=== PATIENT | male | born 1950 | race Caucasian/White ===

== ENCOUNTER 2016-12-27 12:06 | Inpatient (IN) | payer BC ==
[~2016-12-27] VITALS: Ht 165.1 cm; Wt 102.0 kg
[2016-12-27] VITALS (15 sets, daily range): BP systolic 135–154; BP diastolic 62–79; PULSE 64–76; RESP 16–20; TEMP 97.9–98.7; O2SAT 96–99
[~2016-12-27 12:06] MED LIST: FERR325T PO; HYDR10SO PO; IOHEXOL 350 MG/ML 100 ML BTL (for Cath Lab) OTHER ONE; LISI-357 PO; NEXI20CA PO; RIVA10 PO; WALKER STANDARD; ZANTTAB PO
[2016-12-27] MEDS ORDERED: ASPI325T PO (12:19)
[2016-12-27] MEDS ORDERED: PRIL20CA9 PO (12:19)
[2016-12-27] MEDS ORDERED: LISI10TA3 PO (12:19)
[2016-12-27] MEDS ORDERED: LIDOCAINE VISCOUS 2% SOLN 15 ML UDC PO ONE (12:30)
[2016-12-27] MEDS ORDERED: ASPIRIN 325 MG TAB PO ONE (12:30)
[2016-12-27] MEDS ORDERED: FAMOTIDINE 20 MG/2 ML VIAL IV PUSH ONE (12:30)
[2016-12-27] MEDS ORDERED: SODIUM CHLORIDE 0.9% FLUSH 10 ML FLUSH IVF PRN (12:30)
[2016-12-27] MEDS ORDERED: ALUMINUM/MAGNESIUM/SIMETH 30 ML CUP PO ONE (12:30)
[2016-12-27] MEDS ORDERED: PANTOPRAZOLE SODIUM 40 MG VIAL IVP ONE (12:30)
[2016-12-27 12:44] LABS: AUTOMATED NEUTROPHIL # 8.2 TH/MM3 (1.8-7.7); BASOPHIL % 0.3 % (0.0-2.0); EOSINOPHIL % 0.5 % (0.0-4.0); HEMATOCRIT 42.8 % (39.0-51.0); HEMO FLAGS DIFF FINAL; LYMPH % 8.2 % (9.0-44.0); LYMPHOCYTE # 0.8 TH/MM3 (1.0-4.8); MEAN CELL VOLUME 86.5 FL (80.0-100.0); MEAN CORPUSCULAR HEMOGLOBIN 29.5 PG (27.0-34.0); MEAN CORPUSCULAR HGB CONC 34.1 % (32.0-36.0); MONO % 6.8 % (0.0-8.0); NEUT % 84.2 % (16.0-70.0); PLATELET COUNT 353 TH/MM3 (150-450); RED BLOOD COUNT 4.95 MIL/MM3 (4.50-5.90); RED CELL DISTRIBUTION WIDTH 12.7 % (11.6-17.2); WHITE BLOOD COUNT 9.7 TH/MM3 (4.0-11.0)
[2016-12-27 12:47] LABS: CHLORIDE 103 MEQ/L (98-107); POTASSIUM 3.9 MEQ/L (3.5-5.1); SODIUM (NA) 140 MEQ/L (136-145)
[2016-12-27 12:51] LABS: ANION GAP 10 MEQ/L (5-15); BLOOD UREA NITROGEN 18 MG/DL (7-18); MAGNESIUM 2.3 MG/DL (1.5-2.5)
[2016-12-27 12:53] LABS: PROTHROMBIN TIME - PATIENT 10.6 SEC (9.8-11.6)
[2016-12-27 12:54] LABS: ALT (GPT) 29 U/L (12-78); AST (GOT) 36 U/L (15-37); GLOMERULAR FILTRATION RATE 75 ML/MIN (>89)
[2016-12-27 12:55] LABS: TOTAL BILIRUBIN ADULT 0.4 MG/DL (0.2-1.0)
--- NOTE | 2016-12-27 12:55 | RADHPO ---
EXAM DATE/TIME: 12/27/2016 12:41 [place] COMPARISON: CHEST PA & LAT, October 31, 2014, 10:20. INDICATIONS : Chest pain today MEDICAL HISTORY : None. SURGICAL HISTORY : None. ENCOUNTER: Initial ACUITY: 1 day PAIN SCORE: 3/10 LOCATION: Bilateral chest FINDINGS: Single portable view of the chest demonstrates overall hypoinflation. The cardiac silhouette appears mildly increased in size, likely secondary to hypoinflation and portable technique. The lungs are rebecca ssly clear.. Osseous structures are intact. CONCLUSION: Hypoinflation. Otherwise negative exam. Megha Leo MD on December 27, 2016 at 12:52 Board Certified Radiologist. This report was verified electronically.
[2016-12-27 12:57] LABS: ALKALINE PHOSPHATASE 58 U/L (45-117); CREATINE KINASE 331 U/L (39-308)
[2016-12-27 13:09] LABS: CKMB 30.1 NG/ML (0.5-3.6)
--- NOTE | 2016-12-27 13:27 | PD ---
HPI Chief Complaint: Chest Pain Time Seen by Provider: 12:24 Travel History International Travel<30 days: No Contact w/Intl Traveler<30days: No Traveled to known affect area: No History of Present Illness HPI Patient presents for midsternal chest pain that awoke him from sleep at 3 AM. History of reflux and hypertension. Took a Prilosec without relief. Denies diaphoresis. Mild shortness of breath. No radiation to neck or arms. He does complain of bilateral triceps pain. Denies diabetes. Denies tobacco use. Denies any personal cardiac history. Reports that his mother had cardiac problems in her early 60s. PFSH Past Medical History Hx Anticoagulant Therapy: Yes (325mg every couple days) Cancer: Yes (SKIN) Cardiovascular Problems: Yes (htn) Diabetes: No Diminished Hearing: No Endocrine: No Gastrointestinal Disorders: Yes (GERD) GERD: Yes (mahan's) Genitourinary: No Hepatitis: No Hiatal Hernia: No Hypertension: Yes Immune Disorder: No Musculoskeletal: Yes (ARTHRITIS) Neurologic: Yes (LEFT LEG NUMBNESS/ TINGLING FEET) Psychiatric: No Respiratory: Yes (SLEEP APNEA RESOLVED WITH SX) Thyroid Disease: No Tetanus Vaccination: Unknown Influenza Vaccination: No Past Surgical History Abdominal Surgery: Yes (LAP SONNY) AICD: No Joint Replacement: No Oral Surgery: Yes (T & A, UPPP) Pacemaker: No Other Surgery: Yes (left hip replacement) Social History Alcohol Use: Yes (occ) Tobacco Use: No Substance Use: No Allergies-Medications (Allergen,Severity, Reaction): Coded Allergies: No Known Allergies (Unverified , 12/27/16) Reported Meds & Prescriptions Reported Meds & Active Scripts Active Reported Prilosec (Omeprazole) 20 Mg Cap 20 Mg PO DAILY Aspirin 325 Mg Tab 325 Mg PO EVERY OTHER DAY Lisinopril 10 Mg Tab 10 Mg PO DAILY Review of Systems General / Constitutional: No: Fever Eyes: No: Visual changes HENT: No: Headaches Cardiovascular: Positive: Chest Pain or Discomfort Respiratory: No: Shortness of Breath Gastrointestinal: No: Abdominal Pain Genitourinary: No: Dysuria Musculoskeletal: No: Pain Skin: No Rash Neurologic: No: Weakness Psychiatric: No: Depression Endocrine: No: Polydipsia Hematologic/Lymphatic: No: Easy Bruising Physical Exam Narrative GENERAL: Well-nourished, well-developed patient. SKIN: Focused skin assessment warm/dry. HEAD: Normocephalic. EYES: No scleral icterus. No injection or drainage. NECK: Supple, trachea midline. No JVD or lymphadenopathy. CARDIOVASCULAR: Regular rate and rhythm without murmurs, gallops, or rubs. RESPIRATORY: Breath sounds equal bilaterally. No accessory muscle use. GASTROINTESTINAL: Abdomen soft, non-tender, nondistended. MUSCULOSKELETAL: No cyanosis, or edema. BACK: Nontender without obvious deformity. No CVA tenderness. Data Data Last Documented VS Vital Signs Date Time Temp Pulse Resp B/P Pulse Ox O2 Delivery O2 Flow Rate FiO2 12/27/16 13:44 18 12/27/16 13:39 70 138/70 98 Room Air 12/27/16 12:13 97.9 Orders Electrocardiogram (12/27/16 12:24) Ckmb (Isoenzyme) Profile (12/27/16 12:24) Complete Blood Count With Diff (12/27/16 12:24) Comprehensive Metabolic Panel (12/27/16 12:24) Magnesium (Mg) (12/27/16 12:24) Prothrombin Time / Inr (Pt) (12/27/16 12:24) Act Partial Throm Time (Ptt) (12/27/16 12:24) Troponin I (12/27/16 12:24) Chest, Single Ap (12/27/16 12:24) Ecg Monitoring (12/27/16 12:24) Bilateral Bp Monitoring (12/27/16 12:24) Iv Access Insert/Monitor (12/27/16 12:24) Oximetry (12/27/16 12:24) Oxygen Administration (12/27/16 12:24) Aspirin (Aspirin) (12/27/16 12:30) Sodium Chloride 0.9% Flush (Ns Flush) (12/27/16 12:30) Pantoprazole Inj (Protonix Inj) (12/27/16 12:30) Famotidine Inj (Pepcid Inj) (12/27/16 12:30) Al-Mag Hy-Si 40-40-4 Mg/Ml Liq (Mag-Al P (12/27/16 12:30) Lidocaine 2% Viscous (Xylocaine 2% Visco (12/27/16 12:30) CKMB (12/27/16 12:15) CKMB% (12/27/16 12:15) Morphine Inj (Morphine Inj) (12/27/16 13:30) Nitroglycerin 2% Oint (Nitroglycerin 2% (12/27/16 13:30) Admit Order (Ed Use Only) (12/27/16 ) ^ Saline Lock (12/27/16 13:46) Resp Oxygen Nino C Titrat 1-4 L (12/27/16 ) Notify Dr: Other (12/27/16 13:46) Sodium Chlor 0.9% 1000 Ml Inj (Ns 1000 M (12/27/16 14:00) Labs Laboratory Tests Test 12/27/16 12:15 White Blood Count 9.7 TH/MM3 Red Blood Count 4.95 MIL/MM3 Hemoglobin 14.6 GM/DL Hematocrit 42.8 % Mean Corpuscular Volume 86.5 FL Mean Corpuscular Hemoglobin 29.5 PG Mean Corpuscular Hemoglobin 34.1 % Concent Red Cell Distribution Width 12.7 % Platelet Count 353 TH/MM3 Mean Platelet Volume 7.3 FL Neutrophils (%) (Auto) 84.2 % Lymphocytes (%) (Auto) 8.2 % Monocytes (%) (Auto) 6.8 % Eosinophils (%) (Auto) 0.5 % Basophils (%) (Auto) 0.3 % Neutrophils # (Auto) 8.2 TH/MM3 Lymphocytes # (Auto) 0.8 TH/MM3 Monocytes # (Auto) 0.7 TH/MM3 Eosinophils # (Auto) 0.0 TH/MM3 Basophils # (Auto) 0.0 TH/MM3 CBC Comment DIFF FINAL Differential Comment Prothrombin Time 10.6 SEC Prothromb Time International 1.0 RATIO Ratio Activated Partial 33.0 SEC Thromboplast Time Sodium Level 140 MEQ/L Potassium Level 3.9 MEQ/L Chloride Level 103 MEQ/L Carbon Dioxide Level 27.0 MEQ/L Anion Gap 10 MEQ/L Blood Urea Nitrogen 18 MG/DL Creatinine 1.00 MG/DL Estimat Glomerular Filtration 75 ML/MIN Rate Random Glucose 152 MG/DL Calcium Level 9.0 MG/DL Magnesium Level 2.3 MG/DL Total Bilirubin 0.4 MG/DL Aspartate Amino Transf 36 U/L (AST/SGOT) Alanine Aminotransferase 29 U/L (ALT/SGPT) Alkaline Phosphatase 58 U/L Total Creatine Kinase 331 U/L Creatine Kinase MB 30.1 NG/ML Creatine Kinase MB % 9.1 % Troponin I 1.48 NG/ML Total Protein 7.7 GM/DL Albumin 4.3 GM/DL MDM Medical Decision Making Medical Screen Exam Complete: Yes Emergency Medical Condition: Yes Differential Diagnosis ACS, reflux, gastritis Narrative Course Assessment and plan discussed with patient at bedside. No improvement with GI cocktail. EKG sinus rhythm rate of 73. Cardiac enzymes are elevated slightly. Pain was persistent until morphine and nitroglycerin were started. Last 72 hours Impressions Chest X-Ray 12/27/16 1224 Signed Impressions: Service Date/Time: Tuesday, December 27, 2016 12:41 - CONCLUSION: Hypoinflation. Otherwise negative exam. Megha Leo MD Physician Communication Physician Communication Spoke with Dr. Pearl who requested a STEMI alert be called Diagnosis Primary Impression: NSTEMI (non-ST elevated myocardial infarction) Admitting Information Admitting Physician Requests: Admit Andrez Whatley MD Dec 27, 2016 13:27
[2016-12-27] MEDS ORDERED: NITROGLYCERIN 2% OINT 1 GM PACKET TOP ONE (13:30)
[2016-12-27] MEDS ORDERED: MORPHINE SULFATE 4 MG/ML INJ IV PUSH ONE (13:30)
[2016-12-27] MEDS: SODIUM CHLOR 0.9% 1000 ML INJ 1,000 ML IV SCH ×2 (13:53→22:00)
[2016-12-27] MEDS ORDERED: HEPARIN-NS/PF INJ 500 ML ONE (14:19)
[2016-12-27] MEDS ORDERED: HEPARIN SODIUM - IV 10,000 UNITS/10 ML VIAL ONE (14:47)
[2016-12-27] MEDS ORDERED: PRASUGREL 10 MG TAB ONE (15:01)
[2016-12-27] MEDS ORDERED: TIROFIBAN INFUSION INJ 250 ML IV ONE (15:01)
[2016-12-27] MEDS: TIROFIBAN INFUSION INJ 250 ML IV SCH ×2 (15:04→22:11)
[2016-12-27] MEDS ORDERED: SODIUM CHLORIDE 0.9% FLUSH 10 ML FLUSH PRN (15:15)
[2016-12-27] MEDS: PRASUGREL 10 MG TAB PO ONE ×2 (15:15→15:20)
[2016-12-27] MEDS ORDERED: MISC INFORMATION XX ONE (15:15)
[2016-12-27] MEDS ORDERED: NITROGLYCERIN/DEXTROSE 5% 250 ML for chest pain IV SCH (16:45)
[2016-12-27] MEDS ORDERED: HEPARIN 25,000 UNITS-D5W 250 ML - PREMIX IV SCH (17:00)
[2016-12-27] MEDS ORDERED: HEPARIN SODIUM - IV 10,000 UNITS/10 ML VIAL IV PRN ×2 (17:00)
--- NOTE | 2016-12-27 18:47 | MB ---
cc: JUANITA LAY MD DATE OF CONSULTATION: 12/27/16 HISTORY OF PRESENT ILLNESS Yair is a very pleasant 66 year old gentleman with no significant past medical history who developed chest pain at 3:00 a.m. unrelieved in the emergency room treated by Dr. Andrez Whatley. Otherwise, denies any fevers, chills, cough, or GI bleeding, paroxysmal nocturnal dyspnea, orthopnea, syncope or dizziness. PAST MEDICAL HISTORY Per History of Present Illness 1. History of reflux esophagitis 2. Hypertension, 3. Arthritis, 4. Lower extremity neuropathy 5. Sleep apnea 6. Laparoscopic cholecystectomy 7. Left hip replacement SOCIAL HISTORY Drinks alcohol occasionally. Denies tobacco use. ALLERGIES None. MEDICATIONS Prior to admission 1. Prilosec 2. Aspirin 325. 3. Lisinopril 10. Given in the emergency room, 1. Heparin 2. Aspirin 325, 3. One-inch Nitro paste. 4. Pantoprazole 40 5. 20 IV. PHYSICAL EXAMINATION VITAL SIGNS: Blood pressure 147/79, pulse 70, respiratory rate 18, temperature unrecorded. GENERAL: He is alert and oriented x3 in no acute distress. NECK: Supple. No JVD or bruit. CARDIOVASCULAR: S1, S2, no murmurs, rubs or gallops. LUNGS: bilaterally ABDOMEN: Soft, nontender, nondistended with positive bowel sounds, EXTREMITIES: No lower extremity edema. LABORATORY DATA White count 9.7, hemoglobin 14.6, hematocrit 42.8, platelet count 353, troponin is 1.48. CK 331, CK-MB percent 9.1. Sodium 140, potassium 2.9, chloride 103, bicarb 26.0, BUN 18, creatinine 1.0, glucose 152, INR is 1.0. IMAGING STUDIES Chest x-ray - Hypoinflation otherwise negative exam. CARDIOLOGY STUDIES EKG shows normal sinus rhythm at 73 beats per minute. Left anterior fascicular block. DIAGNOSES 1. Non STEMI 2. Hypertension 3. Left anterior fascicular block. 4. Hyperglycemia. RECOMMENDATION The patient had chest pain unrelieved with medical management in the emergency room, therefore, recommend emergency catheterization, primary PCI if indicated. Further recommendations depending on the details of the coronary anatomy and left ventriculogram. MD JOSE M Schwab/ /2:38 PM /6:36 PM
[2016-12-27] MEDS ORDERED: CALCIUM CARBONATE 500 MG CHEWABLE TAB CHEW ONE ×2 (20:15→21:15)
[2016-12-27] MEDS: CARVEDILOL 3.125 MG TAB PO SCH (20:30)
[2016-12-27] MEDS: traMADol HCL 50 MG TAB PO PRN (20:30)
[2016-12-27] MEDS: diphenhydrAMINE HCL 25 MG CAP PO PRN (20:31)
[2016-12-27] MEDS: SODIUM CHLORIDE 0.9% FLUSH 10 ML FLUSH SCH (20:31)
[2016-12-27] MEDS: ATORVASTATIN 10 MG TAB PO SCH (20:31)
[2016-12-27] MEDS ORDERED: FAMOTIDINE 20 MG TAB PO SCH (21:00)
[2016-12-28] VITALS (24 sets, daily range): BP systolic 139–158; BP diastolic 65–81; PULSE 60–83; RESP 16–20; TEMP 97.3–98.6; O2SAT 96–98
[2016-12-28 02:51] LABS: APTT (PATIENT) 44.7 SEC (24.3-30.1)
[2016-12-28] MEDS: traMADol HCL 50 MG TAB PO PRN ×2 (03:33→14:22)
[2016-12-28] MEDS: SODIUM CHLOR 0.9% 1000 ML INJ 1,000 ML IV SCH ×3 (05:49→21:13)
[2016-12-28 06:05] LABS: BASOPHIL % 0.2 % (0.0-2.0); EOSINOPHIL % 0.2 % (0.0-4.0); HEMATOCRIT 34.8 % (39.0-51.0); HEMO FLAGS DIFF FINAL; LYMPH % 11.3 % (9.0-44.0); LYMPHOCYTE # 1.3 TH/MM3 (1.0-4.8); MEAN CELL VOLUME 85.4 FL (80.0-100.0); MEAN CORPUSCULAR HEMOGLOBIN 29.8 PG (27.0-34.0); MEAN CORPUSCULAR HGB CONC 34.8 % (32.0-36.0); MONO % 7.7 % (0.0-8.0); NEUT % 80.6 % (16.0-70.0); PLATELET COUNT 285 TH/MM3 (150-450); RED BLOOD COUNT 4.07 MIL/MM3 (4.50-5.90); RED CELL DISTRIBUTION WIDTH 13.4 % (11.6-17.2); WHITE BLOOD COUNT 11.2 TH/MM3 (4.0-11.0)
[2016-12-28 06:16] LABS: ANION GAP 8 MEQ/L (5-15); BICARBONATE 24.8 MEQ/L (21.0-32.0); BLOOD UREA NITROGEN 15 MG/DL (7-18); CHLORIDE 105 MEQ/L (98-107); CREATINE KINASE 795 U/L (39-308); GLOMERULAR FILTRATION RATE 86 ML/MIN (>89); LDL CHOLESTEROL 85 MG/DL (0-99); POTASSIUM 3.8 MEQ/L (3.5-5.1); SODIUM (NA) 138 MEQ/L (136-145)
[2016-12-28] MEDS: SODIUM CHLORIDE 0.9% FLUSH 10 ML FLUSH SCH ×2 (09:00→20:18)
[2016-12-28] MEDS: ASPIRIN 81 MG CHEW TAB PO SCH (09:14)
[2016-12-28] MEDS: RAMIPRIL 2.5 MG CAP PO SCH (09:14)
[2016-12-28] MEDS: PRASUGREL 10 MG TAB PO SCH (09:14)
[2016-12-28] MEDS: CARVEDILOL 3.125 MG TAB PO SCH ×2 (09:15→20:18)
--- NOTE | 2016-12-28 09:19 | HHI.PR ---
Subjective Remarks Follow-up non-ST elevation CT 12/28/16-patient seen and examined, he underwent emergent left heart catheterization with stent placed yesterday 12/27/16. Reports some ongoing chest pain however improved this morning Objective Vitals Vital Signs Date Time Temp Pulse Resp B/P Pulse Ox O2 Delivery O2 Flow Rate FiO2 12/28/16 07:00 63 12/28/16 06:02 60 12/28/16 05:53 63 12/28/16 04:02 69 12/28/16 03:53 98.6 66 16 154/66 96 12/28/16 03:53 66 12/28/16 02:49 69 12/28/16 01:00 65 12/28/16 00:00 70 12/27/16 23:00 69 12/27/16 23:00 98.5 75 18 141/65 97 12/27/16 22:30 21 12/27/16 22:00 65 12/27/16 21:00 68 12/27/16 20:00 76 12/27/16 19:00 98.7 72 18 135/62 96 12/27/16 19:00 96 Room Air 12/27/16 19:00 72 12/27/16 18:00 74 12/27/16 17:00 64 12/27/16 16:00 64 12/27/16 15:30 98.6 65 20 154/70 96 12/27/16 15:30 96 Room Air 12/27/16 15:00 67 12/27/16 13:44 18 12/27/16 13:39 70 18 138/70 98 Room Air 12/27/16 13:13 68 16 136/72 98 Room Air 12/27/16 12:40 74 16 154/79 98 Room Air 147/79 12/27/16 12:38 98 Room Air 12/27/16 12:38 98 Room Air 12/27/16 12:20 74 16 99 Room Air 12/27/16 12:13 97.9 74 16 154/79 99 I/O 12/27/16 12/27/16 12/27/16 12/28/16 12/28/16 12/28/16 07:00 15:00 23:00 07:00 15:00 23:00 Intake Total 1132 ml Output Total 300 ml Balance 832 ml Intake Oral 480 ml IV Total 652 ml Output Urine Total 300 ml # Voids 1 # Bowel Movements 0 Result Diagram: 12/28/16 0530 12/28/16 0530 Imaging Last Impressions Chest X-Ray 12/27/16 1224 Signed Impressions: Service Date/Time: Tuesday, December 27, 2016 12:41 - CONCLUSION: Hypoinflation. Otherwise negative exam. Megha Loe MD Objective Remarks GENERAL: NAD SKIN: Warm and dry. HEAD: Normocephalic. EYES: No scleral icterus. No injection or drainage. NECK: Supple, trachea midline. No JVD or lymphadenopathy. CARDIOVASCULAR: Regular rate and rhythm without murmurs, gallops, or rubs. RESPIRATORY: Breath sounds equal bilaterally. No accessory muscle use. GASTROINTESTINAL: Abdomen soft, non-tender, nondistended. MUSCULOSKELETAL: No cyanosis, or edema. BACK: Nontender without obvious deformity. No CVA tenderness. 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 Currently on heparin drip/nitro drip/Effient/Coreg/Lipitor/aspirin Hypertension: Continue Coreg Hyperlipidemia: On Lipitor IFG: Check HgA1C and treat accordingly DVT prophylaxis: Heparin Chance Clayton MD Dec 28, 2016 09:19
[2016-12-28 09:32] LABS: APTT (PATIENT) 38.3 SEC (24.3-30.1)
[2016-12-28] MEDS ORDERED: IOHEXOL 350 MG/ML 100 ML BTL (for Cath Lab) OTHER ONE (09:58)
[2016-12-28] MEDS ORDERED: HEPARIN SODIUM - IV 10,000 UNITS/10 ML VIAL ONE (10:05)
[2016-12-28] MEDS ORDERED: HEPARIN-NS/PF INJ 500 ML ONE (10:05)
--- NOTE | 2016-12-28 10:16 | EKG ---
Date Performed: 12/27/2016 Time Performed: 12:07:50 PTAGE: 66 years EKG: Sinus rhythm Possible left anterior fascicular block Borderline ECG Compared to prior tracing no significant liu ge PREVIOUS TRACING : 10/31/2014 09.59 DOCTOR: Bakari Crandall Interpretating Date/Time 12/28/2016 10:14:30
--- NOTE | 2016-12-28 10:20 | EKG ---
Date Performed: 12/28/2016 Time Performed: 06:35:38 PTAGE: 66 years EKG: Sinus rhythm Leftward axis Poor R wave progression - probable normal variant Low QRS voltages in precordial leads Compared to prior tracing no significant change Borderline ECG PREVIOUS TRACING : 12/27/2016 12.07 DOCTOR: Bakari Crandall Interpretating Date/Time 12/28/2016 10:20:29
[2016-12-28] MEDS ORDERED: TIROFIBAN INFUSION INJ 250 ML IV ONE (10:41)
[2016-12-28] MEDS: TIROFIBAN INFUSION INJ 250 ML IV SCH ×2 (10:48→20:37)
[2016-12-28] MEDS ORDERED: MISC INFORMATION XX ONE (11:00)
[2016-12-28] MEDS ORDERED: SODIUM CHLORIDE 0.9% FLUSH 10 ML FLUSH PRN (11:00)
[2016-12-28] MEDS ORDERED: ALUMINUM/MAGNESIUM/SIMETH 30 ML CUP PO PRN (11:30)
[2016-12-28] MEDS: PANTOPRAZOLE SOD 40 MG DELAYED RELEASE TAB PO SCH (13:16)
[2016-12-28 13:47] LABS: HEMOGLOBIN A1a 1.1 %; HEMOGLOBIN Ao 85.5 %; HEMOGLOBIN F 1.2 %; HEMOGLOBIN LA1C 1.9 %; HEMOGLOBIN P3 3.5 %
[2016-12-28] MEDS ORDERED: HEPARIN 25,000 UNITS-D5W 250 ML - PREMIX IV SCH (14:00)
[2016-12-28 18:36] LABS: APTT (PATIENT) 52.1 SEC (24.3-30.1)
[2016-12-28] MEDS: ATORVASTATIN 10 MG TAB PO SCH (20:18)
[2016-12-28] MEDS: diphenhydrAMINE HCL 25 MG CAP PO PRN (20:20)
[2016-12-28] MEDS ORDERED: SODIUM CHLORIDE 0.9% FLUSH 10 ML FLUSH SCH (21:00)
[2016-12-29] VITALS (25 sets, daily range): BP systolic 119–150; BP diastolic 67–82; PULSE 64–80; RESP 16–20; TEMP 97.6–98.4; O2SAT 95–98
[2016-12-29] MEDS: traMADol HCL 50 MG TAB PO PRN (04:57)
[2016-12-29] MEDS ORDERED: ACETAMINOPHEN/HYDROcodone 325 MG/5 MG TAB PO ONE (05:30)
[2016-12-29] MEDS ORDERED: PANTOPRAZOLE SOD 20 MG DELAYED RELEASE TAB PO ONE (05:30)
[2016-12-29] MEDS: SODIUM CHLOR 0.9% 1000 ML INJ 1,000 ML IV SCH ×2 (06:00→14:00)
[2016-12-29 06:17] LABS: BASOPHIL % 0.3 % (0.0-2.0); EOSINOPHIL % 0.4 % (0.0-4.0); HEMATOCRIT 36.5 % (39.0-51.0); HEMO FLAGS DIFF FINAL; LYMPH % 14.8 % (9.0-44.0); LYMPHOCYTE # 1.6 TH/MM3 (1.0-4.8); MEAN CELL VOLUME 85.5 FL (80.0-100.0); MEAN CORPUSCULAR HEMOGLOBIN 30.3 PG (27.0-34.0); MEAN CORPUSCULAR HGB CONC 35.5 % (32.0-36.0); MONO % 9.8 % (0.0-8.0); NEUT % 74.7 % (16.0-70.0); PLATELET COUNT 261 TH/MM3 (150-450); RED BLOOD COUNT 4.27 MIL/MM3 (4.50-5.90); RED CELL DISTRIBUTION WIDTH 13.3 % (11.6-17.2); WHITE BLOOD COUNT 10.8 TH/MM3 (4.0-11.0)
[2016-12-29 06:24] LABS: APTT (PATIENT) 44.8 SEC (24.3-30.1)
[2016-12-29 06:38] LABS: BICARBONATE 24.7 MEQ/L (21.0-32.0); POTASSIUM 3.7 MEQ/L (3.5-5.1)
[2016-12-29] MEDS ORDERED: ALPRAZolam 1 MG TAB PO ONE (08:15)
[2016-12-29] MEDS ORDERED: PRASUGREL 10 MG TAB PO SCH (09:00)
[2016-12-29] MEDS ORDERED: ASPIRIN 81 MG CHEW TAB PO SCH (09:00)
[2016-12-29] MEDS: SODIUM CHLORIDE 0.9% FLUSH 10 ML FLUSH SCH ×2 (09:00→21:00)
[2016-12-29] MEDS: PANTOPRAZOLE SOD 40 MG DELAYED RELEASE TAB PO SCH (09:13)
[2016-12-29] MEDS: CARVEDILOL 3.125 MG TAB PO SCH ×2 (09:13→21:00)
[2016-12-29] MEDS: RAMIPRIL 2.5 MG CAP PO SCH (09:13)
[2016-12-29] MEDS: PRASUGREL 10 MG TAB PO SCH (09:13)
[2016-12-29] MEDS: ASPIRIN 81 MG CHEW TAB PO SCH (09:14)
--- NOTE | 2016-12-29 09:57 | HHI.PR ---
Subjective Remarks Follow-up non-ST elevation [place] 12/28/16-patient seen and examined, he underwent emergent left heart catheterization with stent placed yesterday 12/27/16. Reports some ongoing chest pain however improved this morning 12/29/16-patient seen and examined, denies any chest pain, very upset and anxious about the fact that he is still in hospital. Plan for PCI again today Objective Vitals Vital Signs Date Time Temp Pulse Resp B/P Pulse Ox O2 Delivery O2 Flow Rate FiO2 12/29/16 08:08 97.8 72 18 122/73 95 12/29/16 08:08 95 Room Air 12/29/16 06:02 76 12/29/16 05:00 73 12/29/16 04:39 74 12/29/16 03:52 98.4 75 16 150/77 96 145/72 12/29/16 03:23 97 Room Air 12/29/16 03:22 66 12/29/16 02:00 68 12/29/16 01:00 66 12/29/16 00:13 67 12/28/16 23:46 97.8 68 16 140/74 98 149/76 12/28/16 23:00 67 12/28/16 23:00 97 Room Air 12/28/16 22:00 66 12/28/16 21:45 21 12/28/16 21:00 71 12/28/16 20:00 73 12/28/16 19:00 75 12/28/16 19:00 96 Room Air 12/28/16 19:00 98.3 76 19 148/65 97 145/72 12/28/16 18:00 83 12/28/16 17:00 72 12/28/16 16:20 18 12/28/16 16:00 83 12/28/16 15:00 97 Room Air 12/28/16 15:00 64 12/28/16 15:00 97.5 75 20 150/81 97 145/65 12/28/16 14:00 73 12/28/16 13:00 76 12/28/16 12:00 63 12/28/16 11:00 96 Room Air 12/28/16 11:00 60 12/28/16 11:00 97.3 66 20 139/79 96 151/71 I/O 4/9/17 4/912/28/16 12/29/16 12/29/16 12/29/16 07:00 15:00 23:00 07:00 15:00 23:00 Intake Total 1132 ml 1111 ml 1098 ml Output Total 300 ml 975 ml 1300 ml Balance 832 ml 136 ml -202 ml Intake Oral 480 ml 970 ml 850 ml IV Total 652 ml 141 ml 248 ml Output Urine Total 300 ml 975 ml 1300 ml # Voids 1 0 # Bowel Movements 0 0 Result Diagram: 12/29/16 0530 12/29/16 0500 Imaging Last Impressions Chest X-Ray 12/27/16 1224 Signed Impressions: Service Date/Time: Tuesday, December 27, 2016 12:41 - CONCLUSION: Hypoinflation. Otherwise negative exam. eMgha Leo MD Objective Remarks GENERAL: NAD SKIN: Warm and dry. HEAD: Normocephalic. EYES: No scleral icterus. No injection or drainage. NECK: Supple, trachea midline. No JVD or lymphadenopathy. CARDIOVASCULAR: Regular rate and rhythm without murmurs, gallops, or rubs. RESPIRATORY: Breath sounds equal bilaterally. No accessory muscle use. GASTROINTESTINAL: Abdomen soft, non-tender, nondistended. MUSCULOSKELETAL: No cyanosis, or edema. BACK: Nontender without obvious deformity. No CVA tenderness. 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 Currently on heparin drip/nitro drip/Effient/Coreg/Lipitor/aspirin 2-Hypertension: Continue Coreg 3-Hyperlipidemia: On Lipitor 4-IFG: HgA1C 5.5 5-DVT prophylaxis: Chance Burroughs MD Dec 29, 2016 09:57
[2016-12-29] MEDS ORDERED: IOHEXOL 350 MG/ML 100 ML BTL (for Cath Lab) OTHER ONE (11:26)
[2016-12-29] MEDS ORDERED: HEPARIN-NS/PF INJ 500 ML ONE (11:35)
[2016-12-29] MEDS ORDERED: HEPARIN SODIUM - IV 10,000 UNITS/10 ML VIAL ONE (12:14)
[2016-12-29] MEDS ORDERED: TIROFIBAN INFUSION INJ 250 ML IV ONE (12:20)
[2016-12-29] MEDS: TIROFIBAN INFUSION INJ 250 ML IV SCH ×2 (12:27→22:48)
[2016-12-29] MEDS ORDERED: MISC INFORMATION XX ONE (12:30)
[2016-12-29] MEDS ORDERED: BACITRACIN OINT 0.9 GM PKT TOP ONE (12:30)
[2016-12-29] MEDS ORDERED: SODIUM CHLORIDE 0.9% FLUSH 10 ML FLUSH PRN (12:30)
--- NOTE | 2016-12-29 14:02 | EKG ---
Date Performed: 12/28/2016 Time Performed: 11:19:36 PTAGE: 66 years EKG: Sinus rhythm Leftward axis Since previous tracing, no significant change noted Borderline ECG PREVIOUS TRACING : 12/28/2016 06.35 DOCTOR: Sirisha Kennedy Interpretating Date/Time 12/29/2016 14:01:58
--- NOTE | 2016-12-29 14:03 | EKG ---
Date Performed: 12/29/2016 Time Performed: 06:25:40 PTAGE: 66 years EKG: Sinus rhythm Left axis deviation Poor R wave progression - probable normal variant Since previous tracing, no sig nificant change noted Borderline ECG PREVIOUS TRACING : 12/28/2016 11.19 DOCTOR: Sirisha Kennedy Interpretating Date/Time 12/29/2016 14:02:25
[2016-12-29] MEDS: ATORVASTATIN 10 MG TAB PO SCH (20:59)
[2016-12-29] MEDS ORDERED: SODIUM CHLORIDE 0.9% FLUSH 10 ML FLUSH SCH (21:00)
[2016-12-30] VITALS (13 sets, daily range): BP systolic 118–124; BP diastolic 64–79; PULSE 66–84; RESP 16–20; TEMP 97.8–98.5; O2SAT 94–97
[2016-12-30] MEDS: SODIUM CHLOR 0.9% 1000 ML INJ 1,000 ML IV SCH (06:00)
[2016-12-30 06:50] LABS: AUTOMATED NEUTROPHIL # 7.2 TH/MM3 (1.8-7.7); BASOPHIL % 0.2 % (0.0-2.0); EOSINOPHIL # 0.1 TH/MM3 (0-0.4); EOSINOPHIL % 0.6 % (0.0-4.0); HEMATOCRIT 34.2 % (39.0-51.0); HEMO FLAGS DIFF FINAL; LYMPH % 12.5 % (9.0-44.0); LYMPHOCYTE # 1.1 TH/MM3 (1.0-4.8); MEAN CELL VOLUME 85.8 FL (80.0-100.0); MONO % 8.7 % (0.0-8.0); PLATELET COUNT 260 TH/MM3 (150-450); RED BLOOD COUNT 3.98 MIL/MM3 (4.50-5.90); RED CELL DISTRIBUTION WIDTH 13.4 % (11.6-17.2); WHITE BLOOD COUNT 9.2 TH/MM3 (4.0-11.0)
[2016-12-30 07:08] LABS: APTT (PATIENT) 32.6 SEC (24.3-30.1)
[2016-12-30 07:15] LABS: BICARBONATE 27.3 MEQ/L (21.0-32.0); POTASSIUM 3.4 MEQ/L (3.5-5.1)
[2016-12-30] MEDS: PRASUGREL 10 MG TAB PO SCH (08:41)
[2016-12-30] MEDS: CARVEDILOL 3.125 MG TAB PO SCH (08:41)
[2016-12-30] MEDS: RAMIPRIL 2.5 MG CAP PO SCH (08:41)
[2016-12-30] MEDS: ASPIRIN 81 MG CHEW TAB PO SCH (08:41)
[2016-12-30] MEDS: PANTOPRAZOLE SOD 40 MG DELAYED RELEASE TAB PO SCH (08:41)
[2016-12-30] MEDS: SODIUM CHLORIDE 0.9% FLUSH 10 ML FLUSH SCH (08:42)
[2016-12-30] MEDS ORDERED: PRASUGREL 10 MG TAB PO SCH (09:00)
[2016-12-30] MEDS ORDERED: ASPIRIN 81 MG CHEW TAB PO SCH (09:00)
--- NOTE | 2016-12-30 10:28 | MA ---
cc: JUANITA LAY M.D. DATE: 12/27/2016 PROCEDURE Left heart catheterization, left ventriculography, coronary angiography, direct percutaneous coronary intervention with bare metal stent to the proximal LAD. INDICATIONS Non-ST elevation myocardial infarction, coronary artery disease. DETAILS OF PROCEDURE The patient was brought to the cardiac catheterization laboratory, prepped and draped in the usual sterile fashion. 10 cc of 1% lidocaine was used. A 4[place] sheath placed in the right femoral artery. 4[place] JR4 and JL4 catheters were used to perform left and right coronary angiography and left ventriculography. FINDINGS LEFT VENTRICULOGRAPHY LV pressures: 135/15-60. Ejection fraction was 50%. CORONARY ANGIOGRAPHY The right coronary artery is large and dominant, tortuous in the proximal to midsegment. Mild diffuse disease up to 20-30% angiographically. The distal segment has a 30-40% stenosis. The right PDA has a proximal to mid 95% hazy stenosis. This vessel is probably 2.25 mm in diameter at most. The right posterolateral artery is a relatively large vessel which bifurcates. The more medial branch of the bifurcation has a 60% proximal stenosis. The more lateral branch has mild diffuse disease in the proximal segment up to 10% angiographically. The left main coronary artery has an ostial 30-40% stenosis. The left circumflex vessel has mild diffuse disease in the proximal segment up to 10-20% angiographically. The first obtuse marginal vessel has a 95% mid stenosis. It is a small to medium size vessel, would estimate the vessel diameter at 2.5 mm. The LAD is large and transapical, has a proximal 95% stenosis. After the second diagonal vessel there is a long 50% stenosis. The first diagonal artery is a small artery, 0.5 to 1 mm in diameter. There is no significant obstructive disease. The second diagonal vessel is a small to medium size vessel with mild to moderate diffuse disease in the proximal segment up to 30-40% angiographically. PERCUTANEOUS CORONARY INTERVENTION The 6[place] sheath was exchanged for a 4[place] sheath. 70 units/kg of heparin was given. The ACT was 280. A 6[place] XB 3.5 guide, 0.014 [place] guidewire and a 3.0 x 9 Integrity stent were used to directly stent the proximal LAD with one inflation of 14 atmospheres for 30 seconds. The stent was still slightly under-deployed in the proximal segment. The stenosis went from 95% to 0% with NADIR-III flow. Also note that prior to stent deployment the stent was nearly completely obstructive of the lesion. CONCLUSIONS 1. Severe three-vessel coronary artery disease. Note, I did explain to the patient that surgery is an option which he declined. 2. Preserved LV systolic function at 50%. 3. The probable culprit lesion is probably the mid PDA, however, this is a small vessel and the patient is currently pain free. Due to the a high-grade lesion in the proximal LAD which is a much higher risk lesion with a large amount of jeopardized myocardium, I did fill it was medically necessary to prioritize PCI and revascularization of this lesion first. This was done with a bare metal stent successfully from 95% to 0% with NADIR-III flow. RECOMMENDATIONS 1. Recommend staged PCI of the right PDA tomorrow, 12/28/2016. 2. Recommend Effient 60 mg load then 10 mg daily, Aggrastat drip per protocol, aspirin 162 daily, treat guidelines. 3. Will also need to stage the obtuse marginal vessel and consider FFR of the medial branch of the right AMILCAR which is a 60-70% stenosis angiographically. Also consider FFR of the mid LAD which has a long 50-60% stenosis, particularly as the LAD is a large transapical vessel. This could be done electively after PCI of the right PDA. MD JOSE M Schwab/TRAVIS /3:08 PM /10:03 AM
--- NOTE | 2016-12-30 11:32 | EKG ---
Date Performed: 12/30/2016 Time Performed: 04:25:30 PTAGE: 66 years EKG: Sinus rhythm Possible left anterior fascicular block Inferior T wave changes are nonspecific Borderline ECG PREVIOUS TRACING : 12/29/2016 06.25 DOCTOR: Cornelio Zapata Interpretating Date/Time 12/30/2016 11:31:13
--- NOTE | 2016-12-30 12:24 | HHI.PR ---
Subjective Remarks Follow-up non-ST elevation [place] 12/28/16-patient seen and examined, he underwent emergent left heart catheterization with stent placed yesterday 12/27/16. Reports some ongoing chest pain however improved this morning 12/29/16-patient seen and examined, denies any chest pain, very upset and anxious about the fact that he is still in hospital. Plan for PCI again today 12/30/16-patient seen and examined, currently denies any chest pain or shortness of breath. States he is ready for discharge home. No acute events overnight. Objective Vitals Vital Signs Date Time Temp Pulse Resp B/P Pulse Ox O2 Delivery O2 Flow Rate FiO2 12/30/16 11:00 68 12/30/16 11:00 98.1 71 20 118/67 97 12/30/16 10:00 74 12/30/16 09:00 75 12/30/16 08:00 74 12/30/16 07:00 76 12/30/16 07:00 98.5 82 20 124/65 97 12/30/16 06:00 84 12/30/16 05:00 66 12/30/16 04:00 97.8 75 16 119/64 94 12/30/16 04:00 75 12/30/16 03:00 72 12/30/16 02:00 68 12/30/16 01:00 68 12/30/16 00:00 97.9 68 16 123/79 97 12/30/16 00:00 68 12/29/16 23:00 70 12/29/16 22:00 66 12/29/16 21:00 74 12/29/16 20:00 98.0 78 16 119/75 97 12/29/16 20:00 78 12/29/16 17:00 78 12/29/16 16:00 76 12/29/16 15:57 98 Room Air 12/29/16 15:57 97.6 78 20 147/82 98 12/29/16 15:00 76 12/29/16 14:00 80 12/29/16 13:00 68 12/29/16 12:45 75 18 140/67 98 I/O 12/29/16 12/29/16 12/29/16 12/30/16 12/30/16 12/30/16 07:00 15:00 23:00 07:00 15:00 23:00 Intake Total 1098 ml 360 ml 591 ml Output Total 1300 ml 725 ml 700 ml Balance -202 ml -365 ml -109 ml Intake Oral 850 ml 360 ml 360 ml IV Total 248 ml 231 ml Output Urine Total 1300 ml 725 ml 700 ml # Voids 0 # Bowel Movements 0 0 Result Diagram: 12/30/1644412/30/16444 Objective Remarks GENERAL: NAD SKIN: Warm and dry. HEAD: Normocephalic. EYES: No scleral icterus. No injection or drainage. NECK: Supple, trachea midline. No JVD or lymphadenopathy. CARDIOVASCULAR: Regular rate and rhythm without murmurs, gallops, or rubs. RESPIRATORY: Breath sounds equal bilaterally. No accessory muscle use. GASTROINTESTINAL: Abdomen soft, non-tender, nondistended. MUSCULOSKELETAL: No cyanosis, or edema. BACK: Nontender without obvious deformity. No CVA tenderness. A/P Problem List: (1) Multi-vessel coronary artery stenosis ICD Code: I25.10 Status: Acute (2) NSTEMI (non-ST elevated myocardial infarction) ICD Code: I21.4 Status: Acute (3) IFG (impaired fasting glucose) ICD Code: R73.01 Status: Acute (4) Benign hypertension ICD Code: I10 Status: Acute (5) Hyperlipidemia ICD Code: E78.5 Status: Acute Assessment and Plan 66-year-old man with 1- Severe three-vessel coronary artery disease: s/p C; Patient was offered consultation with CTS by cardiology for CABG however declined 2-Non-ST elevation [place]: Status post emergent left heart catheterization with multiple cardiac stents . Currently on heparin drip/nitro drip/Effient/Coreg/ Lipitor/aspirin 3-Hypertension: Continue Coreg 4-Hyperlipidemia: On Lipitor 5-IFG: HgA1C 5.5 6-DVT prophylaxis: Chance Burroughs MD Dec 30, 2016 12:24
[2016-12-30] MEDS ORDERED: LIPI10TA PO (12:34)
[2016-12-30] MEDS ORDERED: RAMI2.5C PO (12:34)
[2016-12-30] MEDS ORDERED: NITR0.4S SL (12:34)
[2016-12-30] MEDS ORDERED: ASPI1TAB69 PO (12:34)
[2016-12-30] MEDS ORDERED: PRAS10TA PO (12:34)
[2016-12-30] MEDS ORDERED: CARV3.125 PO (12:34)
--- NOTE | 2016-12-30 12:36 | HHI.DS ---
Discharge Summary Admission Date Dec 27, 2016 at 13:52 Discharge Date: Dec 30, 2016 Admitting Diagnosis NSTEMI (1) Multi-vessel coronary artery stenosis ICD Code: I25.10 (2) NSTEMI (non-ST elevated myocardial infarction) ICD Code: I21.4 (3) IFG (impaired fasting glucose) ICD Code: R73.01 (4) Benign hypertension ICD Code: I10 (5) Hyperlipidemia ICD Code: E78.5 Procedures C with PCI Brief History - From Admission Yair is a very pleasant 66 year old gentleman with no significant past medical history who developed chest pain at 3:00 a.m. unrelieved in the emergency room treated by Dr. Andrez Whatley. Otherwise, denies any fevers, chills, cough, or GI bleeding, paroxysmal nocturnal dyspnea, orthopnea, syncope or dizziness. CBC/BMP: 12/30/16 0445 12/30/16 0445 Significant Findings Laboratory Tests Test 12/27/16 12/27/16 12/28/16 12/28/16 17:15 20:38 02:00 05:30 Activated Partial 109.0 SEC 31.0 SEC 44.7 SEC Thromboplast Time (24.3-30.1) (24.3-30.1) (24.3-30.1) White Blood Count 11.2 TH/MM3 (4.0-11.0) Red Blood Count 4.07 MIL/MM3 (4.50-5.90) Hemoglobin 12.1 GM/DL (13.0-17.0) Hematocrit 34.8 % (39.0-51.0) Neutrophils (%) (Auto) 80.6 % (16.0-70.0) Neutrophils # (Auto) 9.0 TH/MM3 (1.8-7.7) Estimat Glomerular Filtration 86 ML/MIN (>89) Rate Random Glucose 114 MG/DL (74-106) Calcium Level 8.4 MG/DL (8.5-10.1) Total Creatine Kinase 795 U/L (39-308) Creatine Kinase MB 71.0 NG/ML (0.5-3.6) Creatine Kinase MB % 8.9 % (0.0-4.0) Test 12/28/16 12/28/16 12/28/16 12/29/16 09:05 15:15 23:10 05:30 Activated Partial 38.3 SEC 52.1 SEC 44.0 SEC Thromboplast Time (24.3-30.1) (24.3-30.1) (24.3-30.1) Red Blood Count 4.27 MIL/MM3 (4.50-5.90) Hemoglobin 12.9 GM/DL (13.0-17.0) Hematocrit 36.5 % (39.0-51.0) Neutrophils (%) (Auto) 74.7 % (16.0-70.0) Monocytes (%) (Auto) 9.8 % (0.0-8.0) Neutrophils # (Auto) 8.0 TH/MM3 (1.8-7.7) Monocytes # (Auto) 1.1 TH/MM3 (0-0.9) Test 12/29/16 12/30/16 06:00 04:45 Activated Partial 44.8 SEC 32.6 SEC Thromboplast Time (24.3-30.1) (24.3-30.1) Red Blood Count 3.98 MIL/MM3 (4.50-5.90) Hemoglobin 12.0 GM/DL (13.0-17.0) Hematocrit 34.2 % (39.0-51.0) Neutrophils (%) (Auto) 78.0 % (16.0-70.0) Monocytes (%) (Auto) 8.7 % (0.0-8.0) Potassium Level 3.4 MEQ/L (3.5-5.1) Imaging Last Impressions Chest X-Ray 12/27/16 1224 Signed Impressions: Service Date/Time: Tuesday, December 27, 2016 12:41 - CONCLUSION: Hypoinflation. Otherwise negative exam. Megha Leo MD PE at Discharge GENERAL: NAD SKIN: Warm and dry. HEAD: Normocephalic. EYES: No scleral icterus. No injection or drainage. NECK: Supple, trachea midline. No JVD or lymphadenopathy. CARDIOVASCULAR: Regular rate and rhythm without murmurs, gallops, or rubs. RESPIRATORY: Breath sounds equal bilaterally. No accessory muscle use. GASTROINTESTINAL: Abdomen soft, non-tender, nondistended. MUSCULOSKELETAL: No cyanosis, or edema. BACK: Nontender without obvious deformity. No CVA tenderness. Hospital Course 1- Severe three-vessel coronary artery disease: s/p LHC; Patient was offered consultation with CTS by cardiology for CABG however declined 2-Non-ST elevation ND: Status post emergent left heart catheterization with multiple cardiac stents . He was treated with heparin drip/nitro drip/Effient/ Coreg/Lipitor/aspirin 3-Hypertension: Treated with Coreg 4-Hyperlipidemia: Treated with Lipitor 5-IFG: HgA1C 5.5 6-DVT prophylaxis: Heparin Pt Condition on Discharge: Stable Discharge Disposition: Discharge Home Discharge Time: <= 30 minutes Discharge Instructions DIET: Follow Instructions for: Heart Healthy Diet Activities you can perform: Regular-No Restrictions Follow up Referrals: Cardiology PCP Follow-up - 1 Week New Medications: Aspirin (Aspirin) 81 Mg Tabdr 81 MG PO DAILY Prevent Blood Clot #30 TAB Nitroglycerin SL (Nitrostat SL) 0.4 Mg Subl 0.4 MG SL ONCE Chest Pain #100 Ref 0 TAB.SL Atorvastatin (Lipitor) 10 Mg Tab 10 MG PO HS Cholesterol Management #30 Ref 3 TAB Carvedilol (Coreg) 3.125 Mg Tab 3.125 MG PO BID Blood Pressure Management #60 Ref 3 TAB Prasugrel (Effient) 10 Mg Tab 10 MG PO DAILY Prevent Blood Clot #30 Ref 3 TAB Ramipril (Ramipril) 2.5 Mg Cap 2.5 MG PO DAILY Blood Pressure Management #30 Ref 3 CAP Continued Medications: Omeprazole (Prilosec) 20 Mg Cap 20 MG PO DAILY #30 Ref 0 CAP Discontinued Medications: Aspirin (Aspirin) 325 Mg Tab 325 MG PO EVERY OTHER DAY #30 Ref 0 TAB Lisinopril (Lisinopril) 10 Mg Tab 10 MG PO DAILY #30 Ref 0 TAB Chance Clayton MD Dec 30, 2016 12:36
--- NOTE | 2016-12-30 13:04 | MA ---
cc: JUANITA LAY M.D. DATE: 12/28/2016 PROCEDURE PCI with bare metal stent of the proximal to mid right PDA. INDICATION Non-ST elevation myocardial infarction, indeterminate culprit lesion. The patient had a 95% proximal LAD, 95% obtuse marginal vessel and a 95% right PDA. Due to the high risk nature of the proximal LAD lesion with a large amount of jeopardized myocardium this was intervened on first. Post procedure the patient still had resting chest pain, therefore it was medically indicated to proceed with PCI of the right PDA and/or obtuse marginal vessel as again it was indeterminate which vessel was causing the patient's symptoms at this point. As the right PDA was slightly larger with more jeopardized myocardium I did think it was medically necessary to pursue PCI of this vessel first. DETAILS OF PROCEDURE The patient was prepped and draped in the usual sterile fashion. The patient had his sheath left in overnight. This was exchanged for a new sterile sheath under sterile technique. Initial ACT was 139. 60 units/kg of heparin was given with an ACT of 272. A 6-Anguillan JR4 guide and a 0.014 Prowater guidewire was not able to be passed into the right PDA due to severe vessel tortuosity. I did place this wire out to the distal right AMILCAR. I then tried a second 0.014 Prowater guidewire with a greater amount of primary bends, was able to access the right PDA but not able to advance it across the lesion again due to severe vessel tortuosity. Then used a 0.014 Choice PT Floppy wire and was able again to access the proximal right PDA, but again was not able to cross the lesion, again due to vessel tortuosity. I used a 2.25 x 10 Euphora balloon to maintain access to the right PDA ostium and then to guide the wire across the lesion which I was able to do successfully. I then pre-dilated the lesion with one inflation to 9 atmospheres for 20 seconds. I then placed a 2.25 x 8 Integrity stent across the lesion with one inflation to 10 atmospheres for 20 seconds. The stenosis went from 95% to 0% with NADIR-III flow. Note, the patient did not have chest pain with balloon inflation or deployment of the stent. CONCLUSIONS 1. Successful PCI with bare metal stent to the proximal-mid right PDA from 95% to 0% with NADIR-III flow. 2. The patient had no chest pain with balloon inflation suggesting that the right PDA was possibly not the culprit lesion and that the culprit lesion was possibly the obtuse marginal vessel. Therefore, I do think it is medically necessary to plan to stage PCI of the first obtuse marginal vessel as the patient is having resting angina refractory to optimal medical therapy. We will leave the sheath in overnight, keep the patient heparinized, and proceed with PCI to obtuse marginal vessel on 12/29/2016. MD JOSE M Schwab/TRAVIS /10:48 AM /12:47 PM
--- NOTE | 2016-12-30 19:22 | MR ---
cc: SCHUYLER LAY M.D. DATE 12/29/16 PROCEDURE PERFORMED PCI bare metal stent of the proximate OM and PTCA of the third OM. INDICATIONS Non-STEMI, indeterminate culprit lesion. The patient still had resting angina post stenting of the proximal LAD and the proximal right PDA; therefore, it is medically indicated to pursue PCI of the obtuse marginal vessel. PROCEDURE IN DETAIL The patient was brought to the cardiac catheterization laboratory, prepped and draped in the usual sterile fashion. The existing 6-Namibian sheath in the right common femoral artery was exchanged by sterile technique with a new 6-Namibian sheath. An ACT was then obtained initial ACT 136. 60 units/kilo of heparin was given. Final ACT pending at the time of dictation. 6-Namibian XB 4.0 guide, 0.014 Prowater guidewire and a 258 Integrity stent was used to directly stent the proximal third obtuse marginal vessels lesion with one inflation 10 atmospheres at 20 seconds. This did reproduce the patient's symptoms of angina. I then use the stent balloon to balloon angioplasty the subtotally occluded lateral branch of the mas-yc-ngvude third obtuse marginal vessel, 2 inflations 8 atmospheres up to 20 seconds. Stenosis went from 99% with NADIR II flow to 0% with NADIR III flow. CONCLUSION 1. Non-STEMI. [place] [employer] class IV angina. Culprit sequential 90% stenoses followed by 99% stenosis in the third obtuse marginal vessel as detailed above. 2. Successful ___ PCI bare metal stent of the proximate OM 3 from 90% to 0% with NADIR III flow. 3. Successful PTCA of the mid to distal lateral branch of the third obtuse marginal vessel from 99% with NADIR II flow to 0% with NADIR III flow. RECOMMENDATIONS Continue aspirin 162 daily, Effient 10 milligrams daily, Lipitor, Altace and Coreg. DC heparin. Schuyler Lay MD AWLeeroy/EO /12:27 PM /7:04 PM
== END 2016-12-30 13:10 | disposition home or self-care (01) | DRG 249 ==
LOC: PHED 12:06 → HCIN 13:52
PROVIDERS: ADMIT Hospitalist; ATTEND Hospitalist
PROC: 02703DZ Dilation of Coronary Artery, One Artery with Intraluminal Device, Percutaneous Approach (ICD-10-PCS; principal; 2016-12-27)
PROC: 4A023N7 Measurement of Cardiac Sampling and Pressure, Left Heart, Percutaneous Approach (ICD-10-PCS; 2016-12-27)
PROC: B2111ZZ Fluoroscopy of Multiple Coronary Arteries using Low Osmolar Contrast (ICD-10-PCS; 2016-12-27)
PROC: B2151ZZ Fluoroscopy of Left Heart using Low Osmolar Contrast (ICD-10-PCS; 2016-12-27)
PROC: 02703DZ Dilation of Coronary Artery, One Artery with Intraluminal Device, Percutaneous Approach (ICD-10-PCS; 2016-12-28)
PROC: 02703DZ Dilation of Coronary Artery, One Artery with Intraluminal Device, Percutaneous Approach (ICD-10-PCS; 2016-12-29)
PROC: 02703ZZ Dilation of Coronary Artery, One Artery, Percutaneous Approach (ICD-10-PCS; 2016-12-29)
DX: I21.4 Non-ST elevation (NSTEMI) myocardial infarction (principal); I23.7 Postinfarction angina; I10 Essential (primary) hypertension; I25.118 Atherosclerotic heart disease of native coronary artery with other forms of angina pectoris; I44.4 Left anterior fascicular block; R73.01 Impaired fasting glucose; E78.5 Hyperlipidemia, unspecified; G47.30 Sleep apnea, unspecified; M19.90 Unspecified osteoarthritis, unspecified site; K21.0 Gastro-esophageal reflux disease with esophagitis; G57.90 Unspecified mononeuropathy of unspecified lower limb; R73.9 Hyperglycemia, unspecified; Z85.828 Personal history of other malignant neoplasm of skin; Z96.642 Presence of left artificial hip joint
CPT/HCPCS: 71010; 80048; 80053; 80061; 82550; 82552; 83036; 83735; 84484; 85002; 85025; 85347; 85610; 85730; 92928; 92941; 93005; 93454; 93458; 96374; 96375; C1725; C1769; C1876; C1887; C1893; C9113; J1644; J2270; J3246; J7030; Q9967

== ENCOUNTER 2018-08-25 06:47 | Inpatient (IN) ==
--- NOTE | 2018-08-25 07:41 | ED ---
HPI General Chief Complaint: Abdominal Pain Stated Complaint: F/U,mass in stomach Time Seen by Provider: 08/25/18 07:32 Source: patient Mode of arrival: ambulatory Limitations: no limitations History of Present Illness HPI narrative: Patient well-known to me. He was admitted 2 days ago with dysphagia. Patient had endoscopy and has a mass at the base of esophagus. However patient has not eaten any solid food from that time. After biopsy patient was told to stay to see the oncologist. However, patient signed out AMA because of personal reasons. Patient still has not had any solid food since his discharge AMA yesterday. Patient still has some epigastric discomfort. Related Data Home Medications Medication Instructions Recorded Confirmed atorvastatin 10 mg PO DAILY 08/23/18 08/25/18 carvedilol 3.125 mg PO BID 08/23/18 08/25/18 isosorbide mononitrate 30 mg PO DAILY 08/23/18 08/25/18 prasugrel 10 mg PO DAILY 08/23/18 08/25/18 ramipril 2.5 mg PO DAILY 08/23/18 08/25/18 Allergies Allergy/AdvReac Type Severity Reaction Status Date / Time No Known Allergies Allergy Verified 08/23/18 11:43 Review of Systems ROS: all other systems reviewed are negative [facility] Medical History Medical History Hx of hyperlipidemia (Acute) Hx of myocardial infarction (Acute) Hx of primary hypertension (Acute) Surgical History Surgical History History of throat surgery (Acute) Hx of heart artery stent (Acute) Hx of tonsillectomy (Acute) Social History Social History Substance History: No History of Abuse Second Hand Smoke Exposure: No Smoking Status: Never smoker How Often Do You Have a Drink Containing Alcohol: Monthly or less Recent Travel in [facility] within the Last 8 Weeks: No Recent Out of Country Travel within the Last 8 Weeks: No Immunization History Tetanus Immunization: Unsure Exam Narrative Exam Narrative: GENERAL: Alert and oriented SKIN: Focused skin assessment warm/dry. HEAD: Atraumatic. Normocephalic. EYES: Pupils equal and round. No scleral icterus. No injection or drainage. ENT: No nasal bleeding or discharge. Mucous membranes pink and moist. NECK: Trachea midline. No JVD. CARDIOVASCULAR: Regular rate and rhythm. No murmur appreciated. RESPIRATORY: No accessory muscle use. Clear to auscultation. Breath sounds equal bilaterally. GASTROINTESTINAL: Abdomen soft, minimal epigastric tenderness with no guarding or rigidity, nondistended. Hepatic and splenic margins not palpable. MUSCULOSKELETAL: No obvious deformities. No clubbing. No cyanosis. No edema. NEUROLOGICAL: Awake and alert. No obvious cranial nerve deficits. Motor grossly within normal limits. Normal speech. PSYCHIATRIC: Appropriate mood and affect; insight and judgment normal. Course Initial Documented Vital Signs Temperature 97.6 F 08/25/18 06:56 Pulse Rate 78 08/25/18 06:56 Respiratory Rate 20 08/25/18 06:56 Blood Pressure 149/65 H 08/25/18 06:56 Pulse Oximetry 99 08/25/18 06:56 Last Documented Vital Signs Temperature 97.6 F 08/25/18 06:56 Pulse Rate 78 08/25/18 06:56 Respiratory Rate 20 08/25/18 06:56 Blood Pressure 149/65 H 08/25/18 06:56 Pulse Oximetry 99 08/25/18 06:56 Medical Decision Making MDM Narrative Medical decision making narrative: Patient has esophageal mass and needs further trial to make sure he can be managed on an outpatient basis. Hospitalist called and patient will be reevaluated with discussion with GI. Medical Screen Exam Complete: Yes Emergency Medical Condition: Yes Discharge Plan Discharge Order Discharge Orders: ED Use Only Admit Order (Routine); Ordered 08/25/18 Ordered By: Damon Johnson Physicians Team ED Provider: Damon Johnson Primary Care Provider: Talia Jonas Rxs /Orders / Referrals /Forms Prescriptions: No Action atorvastatin 10 mg PO DAILY RF: 0 carvedilol 3.125 mg PO BID RF: 0 isosorbide mononitrate 30 mg PO DAILY RF: 0 prasugrel 10 mg PO DAILY RF: 0 ramipril 2.5 mg PO DAILY RF: 0 Discharge Interventions Interventions: Vital Signs Last Done: 08/25/18 06:56 Status ED Status: With Doctor
[2018-08-25] MEDS ORDERED: Bisacodyl 10 MG Supp RECTAL PRN (08:06)
[2018-08-25] MEDS ORDERED: Acetaminophen 325 MG Tablet PO PRN (08:06)
[2018-08-25] MEDS ORDERED: Sod Chloride 0.9% Inj 1,000 ML IV.CONT SCH (08:15)
[2018-08-25] MEDS ORDERED: Senna/Docusate Sodium 8.6/50 MG Tablet PO SCH (09:00)
[2018-08-25] MEDS ORDERED: Heparin - SQ 10,000 UNITS/ML Vial SQ SCH (09:00)
--- NOTE | 2018-08-25 14:33 | P.HPIM ---
History of Present Illness Primary Care Physician: Talia Jonas MD Chief Complaint: Dysphagia History of Present Illness: 67-year-old gentleman presented to the emergency room after he left the hospital AGAINST MEDICAL ADVICE yesterday. Patient states he is having difficulty swallowing, and epigastric abdominal pain. Patient denies fever nausea vomiting shortness of breath or other associated symptoms. Patient was found to have near circumferential esophageal mass on EGD 08/24/2018, biopsy performed is pending. PMhx: Hypertension, dyslipidemia, [place], Hannah's esophagus, GERD PSXhx: Cardiac stent SOChx: Denies tobacco, denies alcohol, FAMhx: Denies significant history Inpatient Certification Inpatient Certification: I certify that the inpatient services were ordered in accordance with Medicare regulations governing the order. This includes certification that hospital inpatient services are reasonable and necessary and in the case of services not specified as inpatient-only under 42 CFR 419.22(n), that they are appropriately provided as inpatient services in accordance to with the 2-midnight benchmark under 43 CFR 412.3(e) Estimated Total Length of Stay (Days): 1 Plans for Post Hospital Care: Home [facility] Medical History Medical History Hx of hyperlipidemia (Acute) Hx of myocardial infarction (Acute) Hx of primary hypertension (Acute) Surgical History Surgical History History of throat surgery (Acute) Hx of heart artery stent (Acute) Hx of tonsillectomy (Acute) Social History Social History Substance History: No History of Abuse Second Hand Smoke Exposure: No Smoking Status: Never smoker How Often Do You Have a Drink Containing Alcohol: Monthly or less Recent Travel in [place] within the Last 8 Weeks: No Recent Out of Country Travel within the Last 8 Weeks: No Immunization History Tetanus Immunization: Unsure Medications and Allergies Allergies Allergy/AdvReac Type Severity Reaction Status Date / Time No Known Allergies Allergy Verified 08/23/18 11:43 Home Medications Medication Instructions Recorded Confirmed Type atorvastatin 10 mg PO DAILY 08/23/18 08/25/18 History carvedilol 3.125 mg PO BID 08/23/18 08/25/18 History isosorbide mononitrate 30 mg PO DAILY 08/23/18 08/25/18 History prasugrel 10 mg PO DAILY 08/23/18 08/25/18 History ramipril 2.5 mg PO DAILY 08/23/18 08/25/18 History Active Medications: Active Medications Acetaminophen (Tylenol) 650 mg PO Q4H PRN PRN Reason: Temp > 100.4 Al Hydroxide/Mg Hydroxide (Milk Of Magnesia Liq) 30 ml PO Q12H PRN PRN Reason: Mild Constipation Bisacodyl (Dulcolax Supp) 10 mg RECTAL DAILY PRN PRN Reason: SEVERE CONSITIPATION Heparin Sodium (Porcine) (Heparin Inj) 5,000 units SQ Q12H [facility] Last Admin: 08/25/18 10:04 Dose: Not Given Sodium Chloride (Ns Inj) 1,000 mls @ 100 mls/hr IV.CONT .Q10H [facility] Last Admin: 08/25/18 10:01 Dose: 100 mls/hr Lactulose (Lactulose Liq) 30 ml PO DAILY PRN PRN Reason: SEVERE CONSITIPATION Ondansetron HCl (Zofran Inj) 4 mg IV.PUSH Q6H PRN PRN Reason: NAUSEA OR VOMITING Senna/Docusate Sodium (Hortencia-Colace) 1 tab PO BID [facility] Last Admin: 08/25/18 10:02 Dose: Not Given Sennosides (Senokot) 17.2 mg PO Q12H PRN PRN Reason: Moderate Constipation Sodium Chloride (Ns Flush) 2 ml IV.FLUSH PRN PRN PRN Reason: FLUSH AFTER USING IV ACCESS Sodium Chloride (Ns Flush) 2 ml IV.FLUSH BID [facility] Last Admin: 08/25/18 10:01 Dose: 2 ml Physical Exam Vital signs: Last Vital Signs Temp 98.5 F 08/25/18 12:00 Pulse 76 08/25/18 12:00 Resp 51 H 08/25/18 12:00 BP 109/57 L 08/25/18 09:21 Pulse Ox 99 08/25/18 06:56 Intake & Output 08/23/18 08/24/18 08/25/18 08/26/18 06:59 06:59 06:59 06:59 Intake Total 540 / 540 Balance 540 / 540 Weight 78.2 kg 79.7 kg GEN well-developed well-nourished 67-year-old white male awake alert oriented to person time and place, pleasant in no acute distress HEENT normocephalic atraumatic, Pupils equal reactive, sclerae anicteric, extraocular motion intact, mucosa is moist. posterior pharynx clear no gum lip dental lesions noted NECK supple no JVD trachea midline thyroid smooth not enlarged ANT CHEST WALL without mass or tenderness to palpation HEART S1-S2 regular without murmur gallops or clicks LUNGS clear to auscultation without wheeze rales or rhonchi , full symmetric expansion BACK exam is no CVA tenderness or mass ABDOMEN soft nondistended positive bowel sounds no guarding rebound rigidity LYMPH NODES no cervical, axillary or inguinal adenopathy noted EXTREMITIES no clubbing cyanosis or significant edema, peripheral pulses palpable +2 NEUROLOGIC cranial nerves II through XII appear grossly intact, strength is 5 out of 5 symmetrical no clonus or rigidity SKIN warm and dry with good turgor, no other rash or sores noted Caprini VTE Risk Assessment Caprini VTE Risk Assessment: Moderate/High Risk (score >= 2) Caprini Risk Assessment Model: Point Value = 1 Point Value = 2 Point Value = 3 Point Value = 5 Age 41-60 Minor surgery BMI > 25 kg/m2 Swollen legs Varicose veins or History of unexplained or recurrent spontaneous Oral contraceptives or hormone replacement Sepsis (< 1 month) Serious lung disease, including pneumonia (< 1 month) Abnormal pulmonary function Acute myocardial infarction Congestive heart failure (< 1 month) History of inflammatory bowel disease Medical patient at bed rest Age 61-74 Arthroscopic surgery Major open surgery (> 45 min) Laparoscopic surgery (> 45 min) Malignancy Confined to bed (> 72 hours) Immobilizing plaster cast Central venous access Age >= 75 History of VTE Family history of VTE Factor V Leiden Prothrombin [id number] Lupus anticoagulant Anticardiolipin antibodies Elevated serum homocysteine Heparin-induced thrombocytopenia Other congenital or acquired thrombophilia Stroke (< 1 month) Elective arthroplasty Hip, pelvis, or leg fracture Acute spinal cord injury (< 1 month) Prophylaxis Regimen: Total Risk Factor Score Risk Level Prophylaxis Regimen 0-1 Low Early ambulation 2 Moderate Order ONE of the following: *Sequential Compression Device (SCD) *Heparin 5000 units SQ BID 3-4 Higher Order ONE of the following medications: *Heparin 5000 units SQ TID *Enoxaparin/Lovenox 40 mg SQ daily (WT < 150 kg, CrCl > 30 mL/min) *Enoxaparin/Lovenox 30 mg SQ daily (WT < 150 kg, CrCl > 10-29 mL/min) *Enoxaparin/Lovenox 30 mg SQ BID (WT < 150 kg, CrCl > 30 mL/min) AND/OR *Sequential Compression Device (SCD) 5 or more Highest Order ONE of the following medications: *Heparin 5000 units SQ TID (Preferred with Epidurals) *Enoxaparin/Lovenox 40 mg SQ daily (WT < 150 kg, CrCl > 30 mL/min) *Enoxaparin/Lovenox 30 mg SQ daily (WT < 150 kg, CrCl > 10-29 mL/min) *Enoxaparin/Lovenox 30 mg SQ BID (WT < 150 kg, CrCl > 30 mL/min) AND *Sequential Compression Device (SCD) Assessment and Plan Plan DYSPHASIA due to esophageal masscontinue full liquid diet as tolerated PARTIALLY OBSTRUCTING ESOPHAGEAL MASSpatient is status post EGD and biopsy, pending results, I discussed the case at length with GI and hematology oncology. Patient if tolerating liquid diet may be discharged home for outpatient follow-up, if patient is unable to tolerate diet, will require esophageal dilation and/or stent. Case was discussed with patient at length, he is feeling better now and is tolerating liquids, I discussed his diet at length recommending full liquids and pured foods only at this time. Patient has a follow-up appointment with hematology oncology next Thursday. HYPERTENSION continue home meds DYSLIPIDEMIA continue statin CAD, history MIcontinue home meds Patient can be discharged home with follow-up closely as outlined above, he is instructed to return to the emergency room or follow-up with GI immediately should he have worsening difficulty tolerating full liquids.
== END 2018-08-25 15:55 | disposition home or self-care (01) ==
LOC: PHED 06:47 → PHEDA 08:06 → PHICU 09:14
PROVIDERS: ADMIT Internal Medicine; ATTEND Internal Medicine
CPT/HCPCS: J7030